=== PATIENT | female | born 1990 | race Caucasian/White ===

== ENCOUNTER 2020-05-18 14:37 | Emergency (ER) | payer SELFPAY ==
--- NOTE | 2020-05-18 14:39 | ECG_ITS ---
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 Measurements Intervals [place] Rate: 95 P: 33 VT: 148 QRS: 4 QRSD: 93 T: 56 QT: 331 QTc: 416 Interpretive Statements SINUS RHYTHM WITH FREQUENT VENTRICULAR PREMATURE COMPLEXES INTERPRETATION BASED ON A DEFAULT AGE OF 40 YEARS No previous ECG available for comparison Electronically Signed On 05-18-2020 17:05:10 CARDIAC NURSE SPECIALIST by Matt Dobson M.D. [id number]
[2020-05-18 15:04] VITALS: BP 117/68; PULSE 118; RESP 25; TEMP 36.9; O2SAT 98; BMI 24.5
--- NOTE | 2020-05-18 15:17 | W.ED.ARRPALP ---
HPI - Arrhythmia/Palpitations General: Chief Complaint: Arrhythmia/Palpitations Stated Complaint: erratic heart rate Time Seen by Provider: 05/18/20 15:04 Source: patient Mode of arrival: ambulatory Limitations: no limitations History of Present Illness: HPI narrative: 29-year-old female states she is currently 11 weeks . She states that she has had palpitations throughout the . She states she was admitted in [place] on the first and had PVCs noted on EKG then. She was admitted 1 night and discharge. She states she had follow-up next week but had to move here and does not have an OB here. She states that roughly 1 to 2 hours ago she started having increased heart rate at home and feeling very anxious. Her heart rate here when she first arrived was 118 but is now in the 90s. She denies any chest pain. She has no abdominal complaints no vaginal bleeding. Denies any worsening improving factors. Associated symptoms: Reports anxiety; Deny nausea or vomiting Review of Systems Const: Denies: fever(s), chills, body aches or change in appetite Eyes: Denies: blurry vision or eye discomfort ENMT: Denies: throat pain or dental pain Card: Reports: palpitations Resp: Denies: dyspnea GI: Denies: abdominal pain, nausea, vomiting or diarrhea : Denies: dysuria Musc: Denies: neck pain or back pain Skin/Breast: Denies: rash Neuro: Denies: headache(s) Psych: Reports: anxiety Cisco/Lymph: Denies: easy bruising All/Imm: Denies: urticaria PFS ED PFSH: Social History (Updated 05/18/20 @ 15:15 by Guanako Davidson RN) Smoking and tobacco status: current every day smoker cigarettes Packs smoked per day: 0.5 Alcohol intake: never Substance/Drug Use: never Female Reproductive History: Date of last menstrual period: 02/28/20 Physical Exam Const: COMMON NORMALS: no acute distress, patient oriented x3 and healthy appearing HENMT: COMMON NORMALS: normocephalic and atraumatic HEAD & SCALP: normocephalic and atraumatic Eye: COMMON NORMALS: Equal, round and reactive pupils present and EOMs intact bilaterally PUPIL: Yes Equal, round and reactive pupils present Neck/C-Spine: COMMON NORMALS: full ROM and supple Chest: COMMONS NORMALS: normal inspection of the chest and normal palpation of entire chest wall Resp: COMMON NORMALS: normal respiratory effort, No retractions, No use of accessory muscles and clear to auscultation bilaterally AUSCULTATION: clear to auscultation bilaterally Cardio: COMMON NORMALS: regular rate, regular rhythm and No murmurs present (Cardio) RATE: regular rate RHYTHM: regular rhythm GI: COMMON NORMALS: Normal to inspection, nondistended, normoactive bowel sounds present, Soft to palpation, non-tender and no masses PALPATION: Yes Soft to palpation Extremity: COMMON NORMALS: normal to inspection and full ROM Neuro: COMMON NORMALS: patient oriented x3, moves all extremities and no focal motor deficits Psych: COMMON NORMALS: mental status grossly normal, Normal thought process present and cooperative THOUGHT PROCESS: Normal thought process present Skin: COMMON NORMALS: no rashes or lesions noted and no wounds GENERAL SKIN EXAM: no rashes or lesions noted Course Vital Signs: Vital signs: Vital Signs Temperature 98.4 F 05/18/20 15:04 Pulse Rate 118 H 05/18/20 15:04 Respiratory Rate 25 H 05/18/20 15:04 Blood Pressure 117/68 05/18/20 15:04 Pulse Oximetry 98 05/18/20 15:04 MDM - Arrhythmia/Palpitations MDM Narrative: Medical decision making narrative: Patient presents here with palpitations. The first EKG here did show some PVCs was mildly tachycardic. Her heart rate improved greatly with 1 dose of labetalol and is now in the 80s. We will get her follow-up with OB. She is stable for discharge is return if worsening. She understands and agrees to plan. She has no chest pain or shortness of breath no signs of pulmonary embolism. Lab Data: Labs: Lab Results 05/18/20 05/18/20 Range/Units 16:27 16:27 WBC 9.8 (4.0-10.0) 10^3/ uL RBC 4.56 (4.1-5.3) 10^6/u L Hgb 14.4 (11.5-15.3) g/dL Hct 41.9 (37.0-47.0) % MCV 91.9 (81-99) fL MCH 31.6 (28.0-34.0) pg MCHC 34.4 (30.0-36.0) g/dL RDW 11.9 L (12.1-15.1) % Plt Count 205 (130-400) 10^3/c mm MPV 10.8 H (7.4-10.4) fL Neut % (Auto) 76.1 % Lymph % (Auto) 17.2 % [place] % (Auto) 5.4 % Eos % (Auto) 0.7 % Baso % (Auto) 0.2 % Neut # (Auto) 7.41 (1.8-7.7) 10^3/u L Lymph # (Auto) 1.7 (0.8-4.8) 10^3/u L [place] # (Auto) 0.5 (0.2-0.9) 10^3/u L Eos # (Auto) 0.1 (0.0-0.8) 10^3/u L Baso # (Auto) 0.0 (0.0-0.1) 10^3/u L Nucleated RBC % (a uto) 0 % Nucleated RBCs # 0.0 /100WBC Sodium 136 (136-145) mmol/L Potassium 3.6 (3.5-5.1) mmol/L Chloride 99 (98-107) mmol/L Carbon Dioxide 27 (22-29) mmol/L Anion Gap 13.6 (5-19) BUN 11 (6-20) mg/dL Creatinine 0.5 (0.5-0.9) mg/dL Glucose 88 (65-115) mg/dL Calcium 9.5 (8.5-10.5) mg/dL Total Bilirubin 0.2 (0.15-1.2) mg/dL AST 11 (0-32) U/L ALT 11 (0-33) U/L Alkaline Phosphata se 55 (35-105) IU/L Total Protein 7.1 (6.6-8.7) g/dL Albumin 4.2 (3.5-5.2) g/dL Globulin 2.9 (1.3-4.6) g/dL EKG Data^: EKG 1: Attestation: I personally reviewed and interpreted this EKG as follows: EKG interpretation date: 05/18/20 EKG interpretation time: 15:02 Interpretation: nsr hr [address] or t wave abnormalities qrs 93 qtc 383 Discharge Plan Discharge Patient Disposition: Home Clinical Impression: Palpitations, Condition: Stable Discharge Orders: Discharge ED (Routine); Ordered 05/18/20 Ordered By: Kevin Ivory Referrals: Raza Joy MD [Physician] - 1-3 days Discharge Diet: Advance as tolerated Discharge Activity: Resume usual activity Patient Instructions: Palpitations (ED) Coding Level of Care Code ED Project Superintendent for Chg Fwd Exam Comprehensive
[2020-05-18 16:48] LABS: Basophils % 0.2 %; Eosinophils # 0.1 10^3/uL (0.0-0.8); Eosinophils % 0.7 %; Hematocrit 41.9 % (37.0-47.0); Hemoglobin 14.4 g/dL (11.5-15.3); Lymphocytes # 1.7 10^3/uL (0.8-4.8); Lymphocytes % 17.2 %; Mean Corpuscular HGB Conc 34.4 g/dL (30.0-36.0); Mean Corpuscular Hemoglobin 31.6 pg (28.0-34.0); Mean Corpuscular Volume 91.9 fL (81-99); Mean Platelet Volume 10.8 fL (7.4-10.4); Monocytes # 0.5 10^3/uL (0.2-0.9); Monocytes % 5.4 %; Neutrophils # 7.41 10^3/uL (1.8-7.7); Neutrophils % 76.1 %; Nucleated Red Blood Cells % 0 %; Platelet Count 205 10^3/cmm (130-400); Red Blood Count 4.56 10^6/uL (4.1-5.3); Red Cell Distribution Width 11.9 % (12.1-15.1); White Blood Count 9.8 10^3/uL (4.0-10.0)
[2020-05-18 17:10] LABS: Alanine Aminotransferase 11 U/L (0-33); Albumin Level 4.2 g/dL (3.5-5.2); Alkaline Phosphatase 55 IU/L (35-105); Anion Gap 13.6 (5-19); Aspartate Amino Transferase 11 U/L (0-32); Blood Urea Nitrogen 11 mg/dL (6-20); Calcium 9.5 mg/dL (8.5-10.5); Carbon Dioxide 27 mmol/L (22-29); Chloride 99 mmol/L (98-107); Creatinine Clr Calc Pharmacy 151.2398; Globulin 2.9 g/dL (1.3-4.6); Glomerular Filtration Rate 143.9 mL/min (90-130); Glucose 88 mg/dL (65-115); Osmolality Calculated 281 mOsm/kg (285-295); Potassium 3.6 mmol/L (3.5-5.1); Sodium 136 mmol/L (136-145); Total Bilirubin 0.2 mg/dL (0.15-1.2); Total Protein 7.1 g/dL (6.6-8.7)
[2020-05-18 17:41] VITALS: BP 96/64; PULSE 77; RESP 18; O2SAT 99
--- NOTE | 2020-05-19 11:55 | DCPLANNER ---
theater manager had message to schedule a follow up appointment for patient with [facility]. theater manager called the [facility], spoke with Jeremias, gave clinic patients information. theater manager was told that patients information would be printed and reviewed. Clinic will call patient with appointment information.
--- NOTE | 2020-05-20 12:24 | DCPLANNER ---
Patient has a follow up appointment scheduled for Thursday, May 21, 2020 at 2:45 at [facility]. Clinic will call patient with appointment information.
--- NOTE | 2020-06-25 14:57 | DCPLANNER ---
Patient has a follow up appointment scheduled for 05.21.20 with [facility] - patient did attend appointment.
== END 2020-05-18 17:52 | disposition home or self-care (01) ==
PROVIDERS: Emergency Provider Emergency Medicine
DX: O26.891 Other specified pregnancy related conditions, first trimester (principal); R00.2 Palpitations; Z3A.11 11 weeks gestation of pregnancy; O99.331 Smoking (tobacco) complicating pregnancy, first trimester; F17.210 Nicotine dependence, cigarettes, uncomplicated
CPT/HCPCS: 12345; 80053; 85025; 93005; 96361; 96374; 99282; 99283; J3490; J7030

== ENCOUNTER → 2020-05-29 08:53 | Outpatient (BNVA) | payer MEDICAID, SELFPAY | PROVIDERS: Visit Provider Nurse Practitioner Women's Health | DX: Z34.80 Encounter for supervision of other normal pregnancy, unspecified trimester (principal) | CPT/HCPCS: 84315; 84439; 84443 ==

== ENCOUNTER → 2020-06-06 13:32 | Outpatient (BNVA) | payer MEDICAID, SELFPAY | PROVIDERS: Visit Provider Obstetrics & Gynecology | DX: O09.41 Supervision of pregnancy with grand multiparity, first trimester (principal); O99.411 Diseases of the circulatory system complicating pregnancy, first trimester; I49.3 Ventricular premature depolarization; O99.281 Endocrine, nutritional and metabolic diseases complicating pregnancy, first trimester; E03.9 Hypothyroidism, unspecified; Z64.1 Problems related to multiparity; Z3A.14 14 weeks gestation of pregnancy | CPT/HCPCS: 80307; 84315; 85027; 86592; 86762; 86803; 86850; 86900; 87086; 87340; 87806 ==

== ENCOUNTER → 2020-06-19 14:19 | Outpatient (BNVA) | payer MEDICAID, SELFPAY | PROVIDERS: Visit Provider Nurse Practitioner Women's Health | DX: Z34.80 Encounter for supervision of other normal pregnancy, unspecified trimester (principal); Z86.19 Personal history of other infectious and parasitic diseases | CPT/HCPCS: 84315; 87491; 87522; 87591 ==

== ENCOUNTER → 2020-06-23 16:18 | Outpatient (BNVA) | payer MEDICAID, SELFPAY | PROVIDERS: Referring Provider Obstetrics & Gynecology; Visit Provider Internal Medicine Cardiovascular Disease | DX: I49.3 Ventricular premature depolarization (principal); R06.02 Shortness of breath; N18.9 Chronic kidney disease, unspecified; R25.2 Cramp and spasm; R07.89 Other chest pain; Q20.8 Other congenital malformations of cardiac chambers and connections; R00.0 Tachycardia, unspecified | CPT/HCPCS: 80048; 83735; 84443 ==

== ENCOUNTER 2020-07-11 07:45 | Outpatient (CLI) | payer MEDICAID, SELFPAY ==
--- NOTE | 2020-07-11 08:00 | USCV_ITS ---
LasalleMicaela Age: 30 Gender: F : 1990 Exam Date: 07/11/2020 08:20 Ordering Phys: Anna Vasquez MD ([email or web address]) Technologist: Shari Carlos Exam Location: [facility] [place] Indication: CHEST PAIN BP: / HR: 80 Rhythm: Sinus Technical Quality: Adequate MEASUREMENTS (Male / Female) Normal Values 2D ECHO LV Diastolic Diameter PLAX 4.4 cm 4.2 - 5.9 / 3.9 - 5.3 cm LV Systolic Diameter PLAX 3.2 cm IVS Diastolic Thickness 0.8 cm 0.6 - 1.0 / 0.6 - 0.9 cm IVS Systolic Thickness 0.9 cm LVPW Diastolic Thickness 1.0 cm 0.6 - 1.0 / 0.6 - 0.9 cm LVPW Systolic Thickness 1.5 cm LVOT Diameter 2.1 cm LV Ejection Fraction 2D Teich 53.0 % LV Ejection Fraction MOD 2C 70.5 % LV Ejection Fraction 2C AL 70.6 % LA Diameter 2.9 cm LA Width 3.2 cm LA Height 4.1 cm RA Width 2.9 cm RA Height 3.9 cm Aorta at Sinotubular Diameter 2.1 cm M-MODE LV Diastolic Diameter MM 5.0 cm 4.2 - 5.9 / 3.9 - 5.3 cm LV Systolic Diameter MM 3.5 cm LV Ejection Fraction MM Teich 57.6 % IVS Diastolic Thickness MM 0.6 cm 0.6 - 1.0 / 0.6 - 0.9 cm IVS Systolic Thickness MM 0.9 cm LVPW Diastolic Thickness MM 0.7 cm 0.6 - 1.0 / 0.6 - 0.9 cm LVPW Systolic Thickness MM 1.1 cm Aortic Annulus Diameter 2.7 cm LA Ao Ratio MM 1.2 MV E Point Septal Separation 0.7 cm DOPPLER AV Peak Velocity 139.0 cm/s LVOT Peak Velocity 121.0 cm/s AV Area Cont Eq vti 2.4 cm squared AV Area Cont Eq pk 3.0 cm squared MV Area PHT 4.1 cm squared Mitral E to A Ratio 1.3 MV E' Velocity 53.5 cm/s Mitral E to MV E' Ratio 5.6 Mitral E to LV E' Lateral Ratio 5.6 Mitral E to LV E' Septal Ratio 5.7 TR Peak Velocity 228.0 cm/s TR Peak Gradient 20.8 mmHg TV Peak E Velocity 61.0 cm/s Right Atrial Pressure 3.0 mmHg Pulmonary Artery Systolic Pressu 23.8 mmHg PV Peak Velocity 101.0 cm/s FINDINGS Left Ventricle Normal left ventricular size and systolic function, EF 57 %. No regional wall motion abnormalities. No gross wall motion normalities were noted. Normal diastolic function. Right Ventricle The right ventricle is normal in size and function. Right Atrium The right atrium is normal in size. Left Atrium The left atrium is normal in size. Mitral Valve No gross abnormalities were noted Aortic Valve No gross abnormalities were noted Tricuspid Valve No gross abnormalities were noted Pulmonic Valve Mild pulmonary valve regurgitation. Pericardium Normal pericardium without effusion. Aorta Normal ascending aorta dimension. CONCLUSIONS Normal left ventricular size and systolic function, EF 57 %. No regional wall motion abnormalities. No gross wall motion normalities were noted. Normal diastolic function. Normal chamber sizes. No significant stenotic or valvular lesions. Strain imagings were performed but GLS was not obtained Dr Anna Vasquez MD [facility] (Electronically Signed) Final Date: 22 July 2020 00:13 S
== END 2020-07-11 07:46 | disposition home or self-care (01) ==
LOC: US 07:47
PROVIDERS: PCP Internal Medicine; Visit Provider Internal Medicine Cardiovascular Disease
DX: R07.89 Other chest pain
CPT/HCPCS: 93306

== ENCOUNTER → 2020-07-21 11:01 | Outpatient (BNVA) | payer MEDICAID, SELFPAY | PROVIDERS: PCP Internal Medicine; Visit Provider Obstetrics & Gynecology | DX: Z34.80 Encounter for supervision of other normal pregnancy, unspecified trimester (principal) | CPT/HCPCS: 81511; 84315 ==

== ENCOUNTER → 2020-08-18 08:20 | Outpatient (BNVA) | payer MEDICAID, SELFPAY | PROVIDERS: PCP Internal Medicine; Visit Provider Obstetrics & Gynecology | DX: Z34.80 Encounter for supervision of other normal pregnancy, unspecified trimester (principal); E03.9 Hypothyroidism, unspecified; B35.4 Tinea corporis; I49.3 Ventricular premature depolarization; R00.0 Tachycardia, unspecified; B19.20 Unspecified viral hepatitis C without hepatic coma; Q20.8 Other congenital malformations of cardiac chambers and connections; Z64.1 Problems related to multiparity | CPT/HCPCS: 84315; 84443 ==

== ENCOUNTER → 2020-09-18 09:41 | Outpatient (BNVA) | payer MEDICAID, SELFPAY | PROVIDERS: PCP Internal Medicine; Visit Provider Obstetrics & Gynecology | DX: O99.332 Smoking (tobacco) complicating pregnancy, second trimester (principal); B35.4 Tinea corporis; Q20.8 Other congenital malformations of cardiac chambers and connections; E03.9 Hypothyroidism, unspecified; Z64.1 Problems related to multiparity; I49.3 Ventricular premature depolarization; R00.0 Tachycardia, unspecified; B19.20 Unspecified viral hepatitis C without hepatic coma | CPT/HCPCS: 82950; 84315; 84443; 85025 ==

== ENCOUNTER → 2020-10-13 08:29 | Outpatient (BNVA) | payer MEDICAID, SELFPAY | PROVIDERS: PCP Internal Medicine; Visit Provider Obstetrics & Gynecology | DX: Z34.80 Encounter for supervision of other normal pregnancy, unspecified trimester (principal); B35.4 Tinea corporis; E03.9 Hypothyroidism, unspecified; Q20.8 Other congenital malformations of cardiac chambers and connections; I49.3 Ventricular premature depolarization; R00.0 Tachycardia, unspecified; B19.20 Unspecified viral hepatitis C without hepatic coma; Z64.1 Problems related to multiparity | CPT/HCPCS: 84315; 84443 ==

== ENCOUNTER 2020-10-20 14:15 | Emergency (ER) | payer MEDICAID, SELFPAY ==
[2020-10-20 14:34] VITALS: BP 123/70; PULSE 104; RESP 15; TEMP 36.7; O2SAT 98; BMI 29.3
--- NOTE | 2020-10-20 14:54 | W.ED.GENADLT ---
HPI - General Adult General: Chief complaint: Eye Problems Stated complaint: wavy lines/vision,numb R side/face,L side/head Time Seen by Provider: 10/20/20 14:41 History of Present Illness: HPI narrative: This patient is a 30-year-old female who presents to the emergency department for eye floaters. Patient states she has a long history of the same and this has been going on for some time. Patient states she was at the grocery store walking around and started having floaters. Patient states she went home to try to relax and noticed that her hand fingers got little numb and tingly and then her right face go numb and tingling but after little bit of rest it resolved. Patient denies any symptoms at this time. Patient is 33 weeks . Patient states her has been uneventful. Patient has no symptoms at this time Onset (ago): minute(s) Associated symptoms: Deny chest pain, dyspnea, headache(s), nausea, rash, palpitations or vomiting Review of Systems General: Reports: 10 or more systems reviewed and unremarkable except in HPI and below Const: Denies: fever(s), chills, body aches or fatigue Eyes: Reports: floaters; Denies: change in vision or blurry vision ENMT: Denies: throat pain, hoarseness or mouth pain Card: Denies: chest pain, palpitations, irregular heart rhythm, edema, swelling of feet/ankles or lightheadedness Resp: Denies: dyspnea, productive cough, non-productive cough, wheezing or pain on inspiration GI: Denies: abdominal pain, nausea or vomiting : Denies: flank pain, difficulty voiding, dysuria, urinary frequency, urinary urgency or urinary hesitancy Musc: Denies: neck pain, back pain, extremity pain, extremity swelling, joint pain, joint swelling, joint redness, joint warmth or limited range of motion Skin/Breast: Denies: rash, pruritus, erythema or skin tenderness Neuro: Denies: headache(s), numbness in extremities or weakness in extremities Psych: Denies: anxiety or depression PFS ED PFSH: Medical History History of hepatitis C (~2016) treated in 2018-- cleared Hypothyroid (~2012) No pertinent past medical history neghx: htn,dm,dvt/pe,herpes --denies partner with herpes PCP: None Surgical History No pertinent past surgical history Family History Family/Other Breast cancer Paternal Aunt x 3-- unknown dx age Thyroid disease Maternal Aunt Cancer Grandmother Diabetes Maternal Mother Lung disease Grandfather Lung disease Denies family history of Colon cancer Ovarian cancer CAD (coronary artery disease) Clotting disorder Dementia Heart disease Hypercholesteremia Chronic kidney disease (CKD) Suicide Anesthesia complication Bleeding disorder Hypertension Uterine cancer Stroke Social History Smoking and tobacco status: former smoker Alcohol intake: never Female Reproductive History: Date of last menstrual period: 02/28/20 Physical Exam Const: COMMON NORMALS: no acute distress, average body habitus, patient oriented x3, no limitations, healthy appearing, alert and well nourished HENMT: COMMON NORMALS: normocephalic, atraumatic, hearing grossly normal bilaterally, external ears normal, EAC's normal, TM's normal bilaterally, Normal external nose present, Normal nasal mucous membranes and turbinates present, moist oral mucous membranes, oropharynx normal, dentition normal and gingiva normal HEAD & SCALP: normocephalic and atraumatic NOSE: Normal external nose present and Normal nasal mucous membranes and turbinates present EXTERNAL EAR: Yes external ears normal EXTERNAL AUDITORY CANAL: EAC's normal TYMPANIC MEMBRANE: TM's normal bilaterally Neck/C-Spine: COMMON NORMALS: full ROM, no lymphadenopathy, supple, no meningeal signs, no JVD, Thyroid normal and No carotid bruits THYROID: Thyroid normal Chest: COMMONS NORMALS: normal inspection of the chest, normal palpation of entire chest wall, normal inspection of the breasts and normal palpation of the breasts Breast/axilla inspection: Yes normal inspection of the breasts BREAST/AXILLA PALPATION: Yes normal palpation of the breasts Resp: COMMON NORMALS: normal respiratory effort, No retractions, No use of accessory muscles, clear to auscultation bilaterally and percussion normal AUSCULTATION: clear to auscultation bilaterally PERCUSSION: percussion normal Cardio: COMMON NORMALS: no JVD, regular rate, regular rhythm, S1 normal heart sound present, S2 normal heart sound present, No gallops present (Cardio), No clicks present (Cardio), No murmurs present (Cardio), No rub (Cardio) and Peripheral pulses 2+ throughout RATE: regular rate RHYTHM: regular rhythm HEART SOUNDS: S1 normal heart sound present and S2 normal heart sound present PERIPHERAL PULSES: Peripheral pulses 2+ throughout GI: COMMON NORMALS: Normal to inspection, nondistended, normoactive bowel sounds present, Soft to palpation, non-tender, No hepatosplenomegaly present, no masses and no bruits PALPATION: Yes Soft to palpation and Yes No hepatosplenomegaly present Back/Pelvis: COMMON NORMALS: thoracic and lumbar spine normal to inspection, no thoracic nor lumbar tenderness, thoraco-lumbar ROM normal and straight leg raise negative bilaterally Extremity: COMMON NORMALS: normal to inspection, full ROM, capillary refill normal, no joint enlargement, no clubbing, cyanosis or edema, no calf tenderness and no pedal edema Neuro: COMMON NORMALS: patient oriented x3 SENSORIUM/ORIENTATION: Yes alert MENINGEAL SIGNS: Yes no meningeal signs Course Reevaluation(s): Reevaluation #1: Negative evaluation in the emergency department. Patient had no symptoms upon arrival and continues to have no symptoms with observation. Negative urine. Patient has long history of floaters in her vision. Patient instructed to follow-up with primary care or MANUFACTURING INSPECTOR as instructed patient be discharged home. Time: 15:40 Vital Signs: Vital signs: Vital Signs Temperature 98.0 F 10/20/20 14:34 Pulse Rate 104 H 10/20/20 14:34 Respiratory Rate 15 10/20/20 14:34 Blood Pressure 123/70 10/20/20 14:34 Pulse Oximetry 98 10/20/20 14:34 MDM - General Adult MDM Narrative: Medical decision making narrative: This patient is a 30-year-old female who presents to the emergency department for eye floaters. Patient states she has a long history of the same and this has been going on for some time. Patient states she was at the grocery store walking around and started having floaters. Patient states she went home to try to relax and noticed that her hand fingers got little numb and tingly and then her right face go numb and tingling but after little bit of rest it resolved. Patient denies any symptoms at this time. Patient is 33 weeks . Patient states her has been uneventful. Patient has no symptoms at this time Negative evaluation in the emergency department. Patient had no symptoms upon arrival and continues to have no symptoms with observation. Negative urine. Patient has long history of floaters in her vision. Patient instructed to follow-up with primary care or MANUFACTURING INSPECTOR as instructed patient be discharged home. Medical Records: Attestation: I reviewed the patient's medical records. Lab Data: Attestation: I reviewed the patient's lab results. Labs: Lab Results 10/20/20 Range/Units 14:58 Urine Color Straw (Yellow) Urine Appearance Clear (CLEAR) Urine pH 7 (5-7) Ur Specific Gravit y 1.000 L (1.005-1.030) Urine Protein Neg (Negative) Urine Glucose (UA) Norm (Normal) Urine Ketones Negative (Negative) Urine Blood Neg (Negative) Urine Nitrate Negative (Negative) Urine Bilirubin Neg (Negative) Urine Urobilinogen Norm (Negative) mg/dL Ur Leukocyte Margaret ase Negative (Negative) Discharge Plan Discharge Patient Disposition: Home Clinical Impression: Floaters in visual field, Numbness and tingling, Encounter for medical screening examination Condition: Stable Prescriptions: No Action prenat.vits,meera,fdp-wjgd-hhjda Tablet 1 tab PO DAILY RF: 0 levothyroxine 150 mcg capsule 150 mcg PO DAILY Qty: 90 RF: 3 Discharge Orders: Discharge ED (Routine); Ordered 10/20/20 Ordered By: Raza Adams Discharge Diet: Advance as tolerated Discharge Activity: Resume usual activity Patient Instructions: Opioid Safety Activity Restrictions/Additional Instructions: Follow-up with primary care physician and/or MANUFACTURING INSPECTOR in the next 2 to 3 days for further evaluation. Also follow-up with optometry or ophthalmology for an eye exam. Return to ER if symptoms fail to improve or worsen Coding Level of Care Code ED President [employer] for Farrah Fwd Exam Comprehensive
[2020-10-20 15:32] LABS: Add Urine Microscopic? NO; Charge for UA Resulting for Rev
[2020-10-20 15:35] LABS: Urine Appearance Clear (CLEAR); Urine Color Straw (Yellow); pH Urine 7 (5-7)
[2020-10-20 15:36] LABS: Bilirubin Urine Neg (Negative); Blood Urine Neg (Negative); Glucose Urine UA Norm (Normal); Ketones Urine Negative (Negative); Leukocyte Esterase Urine Negative (Negative); Nitrate Urine Negative (Negative); Protein Urine Neg (Negative); Urobilinogen Urine Norm (Negative)
== END 2020-10-20 15:50 | disposition home or self-care (01) ==
PROVIDERS: Absent Provider Obstetrics & Gynecology; Emergency Provider Emergency Medicine
DX: H43.399 Other vitreous opacities, unspecified eye (principal); R20.0 Anesthesia of skin; Z87.891 Personal history of nicotine dependence; Z86.19 Personal history of other infectious and parasitic diseases
CPT/HCPCS: 81003; 99282

== ENCOUNTER → 2020-10-28 11:39 | Outpatient (BNVA) | payer MEDICAID, SELFPAY | PROVIDERS: Visit Provider Nurse Practitioner Women's Health | DX: Z34.80 Encounter for supervision of other normal pregnancy, unspecified trimester (principal) | CPT/HCPCS: 81000 ==

== ENCOUNTER → 2020-11-10 07:52 | Outpatient (BNVA) | payer MEDICAID, SELFPAY | PROVIDERS: Visit Provider Obstetrics & Gynecology | DX: Z34.90 Encounter for supervision of normal pregnancy, unspecified, unspecified trimester (principal); Q20.8 Other congenital malformations of cardiac chambers and connections; E03.9 Hypothyroidism, unspecified; Z64.1 Problems related to multiparity; B19.20 Unspecified viral hepatitis C without hepatic coma; R00.0 Tachycardia, unspecified; I49.3 Ventricular premature depolarization | CPT/HCPCS: 84315; 84443; 87081 ==

== ENCOUNTER 2020-11-25 23:19 | Inpatient (IN) | payer MEDICAID, SELFPAY ==
[2020-11-25 22:12] VITALS: TEMP 36.8
[2020-11-25 22:13] VITALS: BP 123/78; PULSE 92
[2020-11-25 22:30] VITALS: BMI 30.4
[2020-11-25 22:51] LABS: Basophils % 0.2 %; Eosinophils % 0.2 %; Hematocrit 35.2 % (37.0-47.0); Hemoglobin 11.4 g/dL (11.5-15.3); Lymphocytes # 1.5 10^3/uL (0.8-4.8); Lymphocytes % 15.9 %; Mean Corpuscular HGB Conc 32.4 g/dL (30.0-36.0); Mean Corpuscular Hemoglobin 27.1 pg (28.0-34.0); Mean Corpuscular Volume 83.6 fL (81-99); Mean Platelet Volume 11.6 fL (7.4-10.4); Monocytes # 0.5 10^3/uL (0.2-0.9); Monocytes % 5.4 %; Neutrophils # 7.44 10^3/uL (1.8-7.7); Neutrophils % 77.8 %; Nucleated Red Blood Cells % 0 %; Platelet Count 197 10^3/cmm (130-400); Red Blood Count 4.21 10^6/uL (4.1-5.3); Red Cell Distribution Width 13.7 % (12.1-15.1); White Blood Count 9.6 10^3/uL (4.0-10.0)
[2020-11-25] MEDS: lactated ringers 1,000 ML 999 ML IV (22:53)
[2020-11-25 23:53] VITALS: BP 129/90; PULSE 99; O2SAT 100
[2020-11-25 23:56] VITALS: BP 148/75; PULSE 109
[2020-11-25 23:58] VITALS: PULSE 100; O2SAT 99
[2020-11-25 23:59] VITALS: BP 137/71; PULSE 94
[2020-11-26] VITALS (66 sets, daily range): BP systolic 93–137; BP diastolic 54–86; PULSE 60–157; RESP 16; TEMP 36.4–37; O2SAT 96–100
[2020-11-26] MEDS: dextrose 5%-lactated ringers 1,000 ML 125 ML IV (00:13)
--- NOTE | 2020-11-26 00:16 | ANES.PAUD2 ---
Documented by User: Barbara Maria CRNA 11/26/20 00:17 Pre-Anesthetic Update Pre-Anesthetic Assessment: Date of Surgery/Procedure: 11/26/20 Preop Diagnosis: IUp Any changes to Pre-Anesthetic Assessment?: No Last Intake: 1930- meal current clear liquids Labs Last 48hrs: Laboratory Results - last 48 hr 11/25/20 22:35 WBC 9.6 RBC 4.21 Hgb 11.4 L Hct 35.2 L MCV 83.6 MCH 27.1 L MCHC 32.4 RDW 13.7 Plt Count 197 MPV 11.6 H Neut % (Auto) 77.8 Lymph % (Auto) 15.9 [place] % (Auto) 5.4 Eos % (Auto) 0.2 Baso % (Auto) 0.2 Neut # (Auto) 7.44 Lymph # (Auto) 1.5 [place] # (Auto) 0.5 Eos # (Auto) 0.0 Baso # (Auto) 0.0 Nucleated RBC % (a uto) 0 Nucleated RBCs # 0.0 Vitals: Temperature 98.2 F 11/25/20 22:12 Temperature Source Tympanic 11/25/20 22:12 Pulse Rate 93 11/26/20 00:15 Pulse Rhythm 11/25/20 22:30 Pulse Strength 3+ Normal 11/25/20 22:30 Respiratory Effort Non-Labored 11/25/20 22:30 Respiratory Depth Normal 11/25/20 22:30 Respiratory Patter n 11/25/20 22:30 Blood Pressure 125/73 11/26/20 00:15 Pulse Oximetry 99 11/26/20 00:13 Oxygen Delivery Me thod 11/25/20 22:30 Exam: Pre-Anes Outpt Exam: alert, oriented x 3 and clear to auscultation bilaterally Cardiac Studies: Holter Monitor 06/19/20 Documented by User: Isael Israel 11/26/20 07:00 Pre-Anesthetic Update Pre-Anesthetic Assessment: Date of Surgery/Procedure: 11/26/20 Cardiac Studies: Holter Monitor 06/19/20
--- NOTE | 2020-11-26 00:18 | ANES.PROC ---
Documented by User: Barbara Maria CRNA 11/26/20 00:20 Anesthesia Procedures Procedure/Date: 11/26/20 Epidural: Time Out Performed: Yes Consents Signed: Procedure Consent Consent: requested by attending/covering physician, from patient, risks and benefits reviewed and patient agrees to proceed Lumbar Level: L3-L4 Epidural position: sitting Epidural procedure: sterile prep of area, 1% lidocaine to numb the area, neg for paresthesia, test dose given, 1.5% xylocaine 1:200k epi, no systemic response, sterile dressing applied, L.U.D. no apparent complications and 0.2% Ropiavacaine @ mls/hr (11 ml/hr) Documented by User: Isael Israel 11/26/20 07:00 Anesthesia Procedures Procedure/Date: 11/26/20
[2020-11-26] MEDS: oxytocin 30 UNIT/500 ML BAG IV (03:25)
--- NOTE | 2020-11-26 05:44 | PM.OPHPUD ---
Labor & Delivery H&P Update Date of Procedure: November 26, 2020 Date H&P Performed: 11/24/20 H&P update information: I have reviewed H&P completed within last 30 days, I have examined patient prior to procedure and Changes to prior documentation as noted here Changes to previous documentation: cervix /4, SROM confirmed clear fluid, active labor Admission Diagnosis: Preop diagnosis: IUP at 38 5/
--- NOTE | 2020-11-26 05:45 | PM.DELIVERY ---
Delivery Note: Date of delivery: November 26, 2020 Pre-delivery diagnoses: iup @ 38 5/7, SROM, active labor Post-delivery diagnoses: iup @ 38 6/7 weeks Procedure: Op report anesthesia: Epidural Delivering Physician: jodi Estimated blood loss (mL): 20 Findings: term female in cephalic presentation Pre-Delivery Course: The patient was admitted with complaints of SROM at term. She made slow progress and pitocin was begun at 1 mEq. She had complete cervical dilation a couple of hours later Delivery: The patient had complete cervical dilation and began to push. The head delivered in the TERRI position over an intact perineum under[ ] anesthesia. The nose and mouth were bulb suctioned. The shoulders and body delivered atraumatically. The baby was placed onto the mother's abdomen. The cord was clamped and cut. Cord blood was obtained. The placenta delivered spontaneously. It was inspected and found to be intact. Inspection of the perineum revealed no lacerations. Estimated blood loss 20 mL. Apgars on baby were 9 at 1 minute and 10 at 5 minutes. Weight of baby is pending. Mother and baby were stable post delivery. Coding Level of Care Code Acute Collar Tailor for Farrah Moser
[2020-11-26 06:37] LABS: Amphetamines Screen Urine Negative (Negative); Barbiturates Screen Urine Negative (Negative); Benzodiazepines Screen Urine Negative (Negative); Cocaine Screen Urine Negative (Negative); Opiate Screen Urine Negative (Negative); PCP Screen Urine Negative (Negative); THC Screen Urine Negative (Negative)
--- NOTE | 2020-11-26 07:00 | ANE.PACU2 ---
Inpatient post-anesthesia follow up: Airway intact: Yes Vital signs: Temperature 98.0 F Pulse Rate 71 Respiratory Rate Blood Pressure 113/63 Pulse Oximetry 98 Oxygen Delivery Me thod Room Air Oxygen Flow Rate Fraction of Inspir ed Oxygen Hydration adequate: Yes Nausea and vomiting: No Pain level: 2 Mental status: Baseline
[2020-11-26] MEDS: prenatal vitamin Capsule 1 CAP PO (08:03)
[2020-11-26] MEDS: lanolin oint 7 gm 1 APPLIC TOPICAL (08:03)
[2020-11-26] MEDS: benzocaine-menthol 78 gm Canister 1 SPRAY TOPICAL (08:03)
[2020-11-26] MEDS: docusate sodium 100 mg Capsule PO ×2 (08:03→18:30)
[2020-11-26] MEDS: ibuprofen 800 mg tablet PO ×3 (08:04→21:32)
[2020-11-26 14:59] LABS: Coronavirus Test Green County Not Detected
[2020-11-26 18:01] LABS: Hematocrit 36.1 % (37.0-47.0); Hemoglobin 11.6 g/dL (11.5-15.3); Mean Corpuscular HGB Conc 32.1 g/dL (30.0-36.0); Mean Corpuscular Hemoglobin 27.4 pg (28.0-34.0); Mean Corpuscular Volume 85.3 fL (81-99); Mean Platelet Volume 11.8 fL (7.4-10.4); Platelet Count 167 10^3/cmm (130-400); Red Blood Count 4.23 10^6/uL (4.1-5.3); Red Cell Distribution Width 13.7 % (12.1-15.1); White Blood Count 10.7 10^3/uL (4.0-10.0)
[2020-11-27] VITALS (10 sets, daily range): BP systolic 94–132; BP diastolic 58–82; PULSE 64–94; RESP 13–19; TEMP 36.1–36.9; O2SAT 97–100
--- NOTE | 2020-11-27 08:23 | ANES.PREANE2 ---
Pre-Anesthetic Assessment Pre-Anesthetic Assessment: Height/Weight: Height 1.63 m Weight 80.286 kg Temp Pulse Resp BP Pulse Ox 98.0 F 73 16 112/72 97 11/27/20 04:00 11/27/20 04:00 11/27/20 04:00 11/27/20 04:00 11/27/20 04:00 Preop Diagnosis: IUP at 38 5/7 Proposed Procedure: Operation Date: 11/27/20 09:35 Proposed Procedures p Lap Fulg,Removal of Tubes Sterilization(Bilateral) - Jimy Norton MD Was Beta Lety taken within 24 hours: N/A Was Clonidine taken within 24 hours: N/A Social: Social History: Tobacco and No alcohol Exam: Pre-Anes Outpt Exam: alert, oriented x 3, clear to auscultation bilaterally and regular rate & rhythm Airway: Submandibular: WNL Cervical ROM: WNL MP: 2 Dentition: Full CV/HEM: CV/HEM: Arrythmia Hepatic: Hepatic: Hepatitis (Hep C) Anesthetic Plan: ASA status: 2 Anesthesia: General Other: One day Risk of > 500 ml blood loss (7ml/kg in children): No Meds/Allergies Current Medications: Current Medications Generic Name Dose Route Start Last Admin Trade Name Freq PRN Reason Stop Dose Admin Benzocaine 1 spray 11/26/20 05:43 11/26/20 08:03 Benzocaine-Menth ol 78 Gm Canister TOPICAL 1 can PRN PRN Administration PAIN Docusate Sodium 100 mg 11/26/20 09:00 11/26/20 18:30 Docusate Sodium 100 Mg Capsule PO 100 mg BID KALEIGH Administration Ropivacaine 200 mg in 100 mls @ 13 mls/hr 11/25/20 22:33 11/26/20 05:30 Naropin Premix EPIDURAL Infused .Q7H42M PRN Infusion ANESTHESIA Lactated Ringer's 1,000 mls @ 999 m ls/hr 11/25/20 22:33 11/25/20 23:54 Lactated Ringers IV Infused .Q1H1M PRN Infusion See label comment s Dextrose/Lactated Ringer's 1,000 mls @ 125 m ls/hr 11/25/20 22:33 11/26/20 12:48 Dextrose 5%-Lact ated Ringers IV Infused .Q8H PRN Infusion Labor Oxytocin 30 unit in 500 ml s @ 1 mls/hr 11/26/20 03:06 11/26/20 12:48 Pitocin IV Infused .Q24H PRN Titration Labor Protocol 1 MILLIUNIT/MIN Ibuprofen 800 mg 11/26/20 09:00 11/26/20 21:32 Ibuprofen 800 Mg Tablet PO 800 mg TID KALEIGH Administration Lanolin 1 applic 11/26/20 05:43 11/26/20 08:03 Lanolin Oint 7 G m TOPICAL 1 tube PRN PRN Administration DRYNESS Multivit/ Folic Acid/Iron 1 cap 11/26/20 09:00 11/26/20 08:03 Vitamin Capsule PO 1 cap DAILY KALEIGH Administration PFSH Anesthesia PFSH: Medical History History of hepatitis C (~2016) treated in 2018-- cleared Hypothyroid (~2012) No pertinent past medical history neghx: htn,dm,dvt/pe,herpes --denies partner with herpes PCP: None Surgical History No pertinent past surgical history Family History Family/Other Breast cancer Paternal Aunt x 3-- unknown dx age Thyroid disease Maternal Aunt Cancer Grandmother Diabetes Maternal Mother Lung disease Grandfather Lung disease Denies family history of Colon cancer Ovarian cancer CAD (coronary artery disease) Clotting disorder Dementia Heart disease Hypercholesteremia Chronic kidney disease (CKD) Suicide Anesthesia complication Bleeding disorder Hypertension Uterine cancer Stroke Female Reproductive History: Date of last menstrual period: 02/28/20 : 7 Data Anesthesia CBC & Chem 7: 11/26/20 17:00 Other Labs: Laboratory Results - last 48 hr 11/25/20 11/26/20 11/26/20 22:35 03:59 06:14 WBC 9.6 RBC 4.21 Hgb 11.4 L Hct 35.2 L MCV 83.6 MCH 27.1 L MCHC 32.4 RDW 13.7 Plt Count 197 MPV 11.6 H Neut % (Auto) 77.8 Lymph % (Auto) 15.9 [place] % (Auto) 5.4 Eos % (Auto) 0.2 Baso % (Auto) 0.2 Neut # (Auto) 7.44 Lymph # (Auto) 1.5 [place] # (Auto) 0.5 Eos # (Auto) 0.0 Baso # (Auto) 0.0 Nucleated RBC % (auto) 0 Nucleated RBCs # 0.0 Urine Opiates Screen Negative Ur Barbiturates Screen Negative Ur Phencyclidine Scrn Negative Ur Amphetamines Screen Negative U Benzodiazepines Scrn Negative Urine Cocaine Screen Negative U Marijuana (THC) Screen Negative Nasal/Oral COVID-19 PCR Not detected 11/26/20 17:00 WBC 10.7 H RBC 4.23 Hgb 11.6 Hct 36.1 L MCV 85.3 MCH 27.4 L MCHC 32.1 RDW 13.7 Plt Count 167 MPV 11.8 H Neut % (Auto) Lymph % (Auto) [place] % (Auto) Eos % (Auto) Baso % (Auto) Neut # (Auto) Lymph # (Auto) [place] # (Auto) Eos # (Auto) Baso # (Auto) Nucleated RBC % (auto) Nucleated RBCs # Urine Opiates Screen Ur Barbiturates Screen Ur Phencyclidine Scrn Ur Amphetamines Screen U Benzodiazepines Scrn Urine Cocaine Screen U Marijuana (THC) Screen Nasal/Oral COVID-19 PCR Cardiac Studies: Holter Monitor 06/19/20
--- NOTE | 2020-11-27 08:31 | PM.DCS ---
Discharge Providers Date of Admission: 11/25/20 23:19 Date of Discharge: November 27, 2020 Attending Provider at Admission: Cynthia Quiroga MD Attending Provider at Discharge: Cynthia Quiroga MD Diagnoses at Discharge Discharge Diagnosis (1) state: Status: Acute (2) History of tubal ligation: Status: Acute Reason for Visit Reason for Visit: Possible ROM Hospital Course Hospital Course Ms. Terrell is a 30 year old status post spontaneous vaginal delivery desire permanent sterilization. Had a bilateral tubal ligation without complications. Operative day 1 she is afebrile and hemodynamically stable. Tolerating diet well. Passing flatus. Ambulating without difficulty. Breast-feeding without difficulty. She will be discharged on POD#2 Physical Exam Narrative: EXAM NARRATIVE: The patient is doing well this morning. She is NPO for tubal ligation today Const: COMMON NORMALS: no acute distress, average body habitus, patient oriented x3, no limitations and healthy appearing GENERAL APPEARANCE: cooperative, comfortable, well kempt and well developed ORIENTATION/CONSCIOUSNESS: Yes awake, Yes oriented to person, Yes oriented to place and Yes oriented to time Resp: COMMON NORMALS: normal respiratory effort EFFORT & INSPECTION: Yes able to speak in complete sentences GI: COMMON NORMALS: Soft to palpation and non-tender PALPATION: Yes Soft to palpation Extremity: COMMON NORMALS: no clubbing, cyanosis or edema and no calf tenderness Neuro: COMMON NORMALS: patient oriented x3 SENSORIUM/ORIENTATION: Yes oriented to person, Yes oriented to place and Yes oriented to time Psych: APPEARANCE: Yes well kempt Urinary Catheter Management^: Casey: Cath Placed During This Visit: yes, but has since been removed by the nurse Reason for Continuing Indwelling Catheter: Decision to DC Catheter Urinary Catheter Date of Insertion: 11/26/20 Urinary Catheter Time of Insertion: 01:01 Date Urinary Catheter Removed: 11/26/20 Time Urinary Catheter Discontinued: 05:21 Discharge Data Data Completed and Pending: Labs from last 24 hours 11/26/20 11/26/20 17:00 03:59 WBC 10.7 H RBC 4.23 Hgb 11.6 Hct 36.1 L MCV 85.3 MCH 27.4 L MCHC 32.1 RDW 13.7 Plt Count 167 MPV 11.8 H Nasal/Oral COVID-1 9 PCR Not detected Vitals: Last Vital Signs Temp 98.0 F 11/27/20 04:00 Pulse 73 11/27/20 04:00 Resp 16 11/27/20 04:00 BP 112/72 11/27/20 04:00 Pulse Ox 97 11/27/20 04:00 Discharge Plan Discharge Patient Disposition: Home Condition: Stable Prescriptions: New hydrocodone-acetaminophen 5-325 mg Tablet 1 tab PO Q4H PRN (Reason: Moderate To Severe Pain) Qty: 20 RF: 0 Continued prenat.vits,meera,sbz-gqhy-bvvsj Tablet 1 tab PO DAILY RF: 0 levothyroxine 150 mcg capsule 150 mcg PO DAILY Qty: 90 RF: 3 Discharge Orders: Discharge Order (Routine); Ordered 11/28/20 Ordered By: Jimy Norton Referrals: Jmiy Norton MD [Physician] - 2 weeks (Post op visit at 2 weeks) Cynthia Quiroga MD [Physician] - 12/08/20 10:15 am (Your 2 week post- appointment is scheduled for 12/08/20 @8:00. Your 6 week post- appointment is scheduled for 01/08/21 @10:15. ) Discharge Diet: Regular Discharge Activity: Increase activity as tolerated Patient Instructions: Vitamins (By mouth), Female Sterilization, Pre-eclampsia and Eclampsia (DC), Bleeding (DC), OB Discharge Report, OB Food/Drug Interaction Guide, Opioid Safety, OB Home Care, OB Proud Parent Packet, OB Vaginal Deliveries - [facility] Activity Restrictions/Additional Instructions: 1. Please call [facility] [place] Women [facility] Care clinic on next working day to make your post-operative appointment in 2 weeks. 2. Please stay home until you come back to the clinic on first post-operative check up. 3. Please follow instructions on your medications CAREFULLY. 4. If you have abdominal incision, do not cover it unless dressing is necessary because of drainage. OK to shower, but avoid bath. Leave steri-strips until they fall off. If they are still on one week after surgery, you may remove them. 5. If you had vaginal surgery or vaginal repair, Dr. Norton may instruct you to take SITZ bath. 6. Yellow, blood tinged odorous vaginal discharge is usually normal after hysterectomy or vaginal surgeries. 7. No sexual intercourse, tampons, or douches until you are completely released from the post-operative care. 8. Avoid constipation by eating right and maybe using some Metamucil or Milk of Magnesia. 9. All prescription refills are given during the working hours. Please do no wait till it runs out. Call the clinic at [phone] before your medication runs out. The clinic will get in touch with your doctor to prescribe medications if necessary. 10. Please remain within 40 mile radius from our hospital because emergencies do happen now and then during the post-operative period. 11. If you have stairs at home, take one step at a time slowly and minimize the number of trips. It helps to stay in one floor for the next few days. No lifting except what you can lift by one hand until you are released from the post-operative care. 12. Driving is discouraged until you are well healed. It may be 3-4 weeks before you feel strong enough to drive. You should be able to turn and look through the rear window without pain and you should be able to push the brake pedal very hard without pain before you drive. No fast rules, but SAFETY should be your primary concern. DO NOT drive if you are on sedating medications such as narcotics. 13. Call the clinic (during working hours) to make urgent appointment or go to the Emergency room, if any of the following occurs: i. Vaginal bleeding becomes heavy, more than a period. ii. Incision becomes red and sore, or drains pus. iii. Your temperature is over 100.4 or you have chill. iv. IV site becomes red and swollen (a little ``knot?? is usually OK) v. Persistent nausea and vomiting vi. Persistent constipation or diarrhea vii. Rash or allergic reaction to medications. Discharge Attestations Time Spent in Discharge Care*: less than 30 min Quality Metrics Clinical Quality Measures During this hospital stay, did patient experience: None Coding Level of Care Code Acute Chg FW DC note Exam Expanded Problem Focused Diagnoses state Z39.2 History of tubal ligation Z98.51
--- NOTE | 2020-11-27 08:44 | PM.PN ---
Subjective Subjective: Interval history: Ms. Terrell is a 29 year old status post spontaneous vaginal delivery desires permanent sterilization. Vitals/I&O/Wt Last Vital Signs Temp 98.0 F 11/27/20 04:00 Pulse 73 11/27/20 04:00 Resp 16 11/27/20 04:00 BP 112/72 11/27/20 04:00 Pulse Ox 97 11/27/20 04:00 Weight last 48 hrs Weight 80.286 kg Physical Exam Narrative: EXAM NARRATIVE: GA; alert and oriented x 3 HEENT: normal Breasts: engorged Nipples - skin intact Lungs; clear to auscultation Heart: regular rhythm, no murmurs. Abd: Appropriately tender. BS+. Uterine fundus below umbilicus. No Fundal Tenderness. Perineum: normal lochia. Extremities: no edema, no cyanosis, no tenderness. Urinary Catheter Management^: Casey: Cath Placed During This Visit: yes, but has since been removed by the nurse Reason for Continuing Indwelling Catheter: Decision to DC Catheter Urinary Catheter Date of Insertion: 11/26/20 Urinary Catheter Time of Insertion: 01: Date Urinary Catheter Removed: 11/26/20 Time Urinary Catheter Discontinued: : Data : 11/26/20 17:00 A&P Assessment and plan (1) Request for sterilization: Ms. Terrell is a 30 year old status post spontaneous vaginal delivery desire permanent sterilization requesting tubal ligation. The patient was counseled regarding all methods of contraception, risk and complications. She elected to continue to proceed with the tubal ligation as planned. partial salpingectomy is associated with lower failure rates than interval tubal occlusions done via laparoscopy. She was counseled regarding the procedure, alternative, risks and complications. Complications of tubal sterilization include problems like but not limited to anesthesia, hemorrhage, organ damage, and mortality. Although pregnancies after a sterilization procedure are rare, there is substantial risk that any post-sterilization could be ectopic. The overall failure rate is on the order of 0.5% in the first year but a study showed that sterilization failures vary by both age at sterilization and the method used. The study also found that the risks of accumulate over time, and that for women aged 18 to 27 years, failure rates can be as high as 5% with bipolar coagulation and the spring clip. The patient was informed of the risks and benefits of the procedure. Risks included but were not limited to bleeding, infection, and injury to internal organs. The patient was counseled on the risk of sterilization failure. The patient was informed that in the event a occurs the risk of ectopic is increased. The patient was counseled that bilateral tubal ligation is intended to be permanent and nonreversible. She was also counseled that there are nonpermanent forms of control available to her. The patient expressed understanding of the risks involved, all questions were answered, and the patient consented to the procedure and had signed and had signed the consent. This documentation was created by [employer] aerospace control and warning systems software (known for inherent aerospace control and warning systems error). Every effort was made to assure accuracy of aerospace control and warning systems. Any obvious errors or omissions should be clarified with the author of the document. Status: Acute (2) Status post vaginal delivery: Status: Acute Attestations Medical Necessity Statement*: In my professional opinion per admitting diagnosis. Coding Level of Care Code Acute Animal Physiologist for Chg Fwd Diagnoses Request for sterilization Z30.2 Status post vaginal delivery
--- NOTE | 2020-11-27 10:10 | PM.OP ---
Operative Report Date of procedure: November 27, 2020 Pre-op Diagnosis: IUP at 38 5/7, Pre-op Diagnosis: status post spontaneous vaginal delivery, desires permanent sterilization Post-op diagnosis: same Post-op Findings: Enlarged uterus at the level of the umbilicus Procedure Done: bilateral tubal ligation via fulguration with the [employer] Fine Fusion Vessel Sealing device Specimens removed/disposition: Left and right fallopian tube segments Pathology: Left and right fallopian tube segment Surgeon: Jimy Norton MD Anesthesia: General Estimated blood loss (mL): 1 IV fluids (mL): 500 Urine output (mL): 100 Complications: none Condition: stable Disposition: PACU Brief History: Ms. Terrell is a 29 year old status post spontaneous vaginal delivery desires permanent sterilization. Procedure: After assuring informed consent. The patient was informed of the risks and benefits of the procedure. Risks included but were not limited to bleeding, infection, and injury to internal organs. The patient was counseled on the risk of sterilization failure. The patient was informed that in the event a occurs the risk of ectopic is increased. The patient was counseled that bilateral tubal ligation is intended to be permanent and nonreversible. She was also counseled that there are nonpermanent forms of control available to her. The patient expressed understanding of the risks involved, all questions were answered, and the patient consented to the procedure. The patient was taken to the operating room and general anesthesia administered. Time-out procedure was performed. A small, transverse, infraumbilical skin incision was made with a scalpel, and the incision was carried down through the underlying fascia until the peritoneum was identified and entered. The left fallopian tube was identified, brought into the incision and grasped with a [place] clamp. The tube was then followed out to the fimbria. An avascular midsection of the fallopian tube was grasped with a [place] clamp and brought into a knuckle. The tube was clamped, mauro and transected with the [employer] Fine Fusion Vessel Sealing device . The specimen was sent to pathology. Excellent hemostasis was noted, and the tube was returned to the abdomen. The same procedure was performed on the opposite fallopian tube. The fascia was then closed with O-Vicryl in a single layer. The skin was closed with 3-O Monocryl in a subcuticular fashion. The patient tolerated the procedure well. Needle and sponge counts were correct times 3.
--- NOTE | 2020-11-27 10:25 | SUR.PHASEI ---
PT AWAKE ALERT TALKATIVE , PT VERBALLY DENIES PAIN AND NAUSEA, ASKING ABOUT , WARM BLANKET TO PT. PT DENIES COLD, VSS.
[2020-11-27] MEDS: ketorolac 30 mg/mL INJ IVP (11:53)
--- NOTE | 2020-11-27 14:37 | ANE.PACU2 ---
Inpatient post-anesthesia follow up: Airway intact: Yes Vital signs: Temperature 98.5 F Pulse Rate 69 Respiratory Rate 18 Blood Pressure 108/75 Pulse Oximetry 100 Oxygen Delivery Me thod Room Air Oxygen Flow Rate 6 Fraction of Inspir ed Oxygen Hydration adequate: Yes Nausea and vomiting: No Pain level: 2 Mental status: Baseline
[2020-11-27] MEDS: docusate sodium 100 mg Capsule PO (18:45)
[2020-11-27] MEDS: ibuprofen 800 mg tablet PO (20:24)
[2020-11-27] MEDS: HYDROcodone-acetaminophen 5-325 mg Tablet PO (22:23)
[2020-11-28] MEDS: HYDROcodone-acetaminophen 5-325 mg Tablet PO (04:34)
[2020-11-28] MEDS: ibuprofen 800 mg tablet PO (04:36)
[2020-11-28 05:02] LABS: Hematocrit 32.3 % (37.0-47.0); Hemoglobin 10.1 g/dL (11.5-15.3); Mean Corpuscular HGB Conc 31.3 g/dL (30.0-36.0); Mean Corpuscular Hemoglobin 26.9 pg (28.0-34.0); Mean Corpuscular Volume 86.1 fL (81-99); Mean Platelet Volume 11.3 fL (7.4-10.4); Platelet Count 154 10^3/cmm (130-400); Red Blood Count 3.75 10^6/uL (4.1-5.3); Red Cell Distribution Width 13.8 % (12.1-15.1); White Blood Count 8.9 10^3/uL (4.0-10.0)
[2020-11-28 05:43] VITALS: BP 115/76; PULSE 66; RESP 17; TEMP 36.8
--- NOTE | 2020-11-28 08:17 | PM.OBGYDC ---
Discharge Providers SENIOR SOFTWARE ANALYST Date of Admission: 11/25/20 23:19 Date of Discharge: 11/28/20 Attending Provider at Admission: Cynthia Quiroga MD Attending Provider at Discharge: Jimy Norton MD Diagnoses at Discharge Discharge Diagnosis (1) Request for sterilization: Status: Acute (2) Status post vaginal delivery: Status: Acute Reason for Visit Reason for Visit: Possible ROM Hospital Course Hospital Course Ms. Terrell is a 30 year old status post spontaneous vaginal delivery desire permanent sterilization. Had a bilateral tubal ligation without complications. Operative day 1 she is afebrile and hemodynamically stable. Tolerating diet well. Passing flatus. Ambulating without difficulty. Breast-feeding without difficulty. Information Peripartum Data: Infant Delivery Method: Vaginal Physical Exam Narrative: EXAM NARRATIVE: GA; alert and oriented x 3 HEENT: normal Breasts: engorged Nipples - skin intact Lungs; clear to auscultation Heart: regular rhythm, no murmurs. Abd: Appropriately tender. BS+. Uterine fundus below umbilicus. No Fundal Tenderness. minimal tenderness, incision clean and dry, no redness, pain or edema. Perineum: normal lochia. Extremities: no edema, no cyanosis, no tenderness. Urinary Catheter Management^: Casey: Cath Placed During This Visit: yes, but has since been removed by the nurse Reason for Continuing Indwelling Catheter: Decision to DC Catheter Urinary Catheter Date of Insertion: 11/27/20 Urinary Catheter Time of Insertion: 09:50 Date Urinary Catheter Removed: 11/26/20 Time Urinary Catheter Discontinued: 05:21 Discharge Data Data Completed and Pending: Pending at discharge Category Date Time Status Pathology: Surgic al [PTH] Routine Pth 11/27/20 10:20 Received Labs from last 24 hours 11/28/20 04:40 WBC 8.9 RBC 3.75 L Hgb 10.1 L Hct 32.3 L MCV 86.1 MCH 26.9 L MCHC 31.3 RDW 13.8 Plt Count 154 MPV 11.3 H Vitals: Last Vital Signs Temp 98.2 F 11/28/20 05:43 Pulse 66 11/28/20 05:43 Resp 17 11/28/20 05:43 BP 115/76 11/28/20 05:43 Pulse Ox 98 11/27/20 22:00 Discharge Plan Discharge Patient Disposition: Home Condition: Stable Prescriptions: New hydrocodone-acetaminophen 5-325 mg Tablet 1 tab PO Q4H PRN (Reason: Moderate To Severe Pain) Qty: 20 RF: 0 Continued prenat.vits,meera,mia-vqle-djcvf Tablet 1 tab PO DAILY RF: 0 levothyroxine 150 mcg capsule 150 mcg PO DAILY Qty: 90 RF: 3 Discharge Orders: Discharge Order (Routine); Ordered 11/28/20 Ordered By: Jimy Norton Referrals: Cynthia Quiroga MD [Physician] - 12/08/20 10:15 am (Your 2 week post- appointment is scheduled for 12/08/20 @8:00. Your 6 week post- appointment is scheduled for 01/08/21 @10:15. ) Jimy Norton MD [Physician] - 2 weeks (Post op visit at 2 weeks) Discharge Diet: Regular Discharge Activity: Increase activity as tolerated Patient Instructions: Vitamins (By mouth), Pre-eclampsia and Eclampsia (DC), Bleeding (DC), OB Discharge Report, OB Food/Drug Interaction Guide, Opioid Safety, OB Home Care, OB Proud Parent Packet, OB Vaginal Deliveries - [facility], Female Sterilization Activity Restrictions/Additional Instructions: 1. Please call [facility] on next working day to make your post-operative appointment in 2 weeks. 2. Please stay home until you come back to the clinic on first post-operative check up. 3. Please follow instructions on your medications CAREFULLY. 4. If you have abdominal incision, do not cover it unless dressing is necessary because of drainage. OK to shower, but avoid bath. Leave steri-strips until they fall off. If they are still on one week after surgery, you may remove them. 5. If you had vaginal surgery or vaginal repair, Dr. Norton may instruct you to take SITZ bath. 6. Yellow, blood tinged odorous vaginal discharge is usually normal after hysterectomy or vaginal surgeries. 7. No sexual intercourse, tampons, or douches until you are completely released from the post-operative care. 8. Avoid constipation by eating right and maybe using some Metamucil or Milk of Magnesia. 9. All prescription refills are given during the working hours. Please do no wait till it runs out. Call the clinic at [phone] before your medication runs out. The clinic will get in touch with your doctor to prescribe medications if necessary. 10. Please remain within 40 mile radius from our hospital because emergencies do happen now and then during the post-operative period. 11. If you have stairs at home, take one step at a time slowly and minimize the number of trips. It helps to stay in one floor for the next few days. No lifting except what you can lift by one hand until you are released from the post-operative care. 12. Driving is discouraged until you are well healed. It may be 3-4 weeks before you feel strong enough to drive. You should be able to turn and look through the rear window without pain and you should be able to push the brake pedal very hard without pain before you drive. No fast rules, but SAFETY should be your primary concern. DO NOT drive if you are on sedating medications such as narcotics. 13. Call the clinic (during working hours) to make urgent appointment or go to the Emergency room, if any of the following occurs: i. Vaginal bleeding becomes heavy, more than a period. ii. Incision becomes red and sore, or drains pus. iii. Your temperature is over 100.4 or you have chill. iv. IV site becomes red and swollen (a little ``knot?? is usually OK) v. Persistent nausea and vomiting vi. Persistent constipation or diarrhea vii. Rash or allergic reaction to medications. Discharge Attestations SENIOR SOFTWARE ANALYST Time Spent in Discharge Care*: greater than 30 min Coding Level of Care Code Acute Home Service Consultant for Farrah Moser Diagnoses Request for sterilization Z30.2 Status post vaginal delivery
[2020-11-28 09:40] VITALS: BP 120/63; PULSE 83; RESP 16; TEMP 36.8; O2SAT 98
== END 2020-11-28 10:14 | disposition home or self-care (01) | DRG 798 ==
LOC: OPOB 23:20
PROVIDERS: Obstetrics & Gynecology; Admitting Provider Obstetrics & Gynecology; Visit Provider Obstetrics & Gynecology
PROC: 0UB70ZZ Excision of Bilateral Fallopian Tubes, Open Approach (ICD-10-PCS; CPT 58605; principal; 2020-11-27 09:25)
DX: O99.284 Endocrine, nutritional and metabolic diseases complicating childbirth (principal); Z37.0 Single live birth; E03.9 Hypothyroidism, unspecified; O99.42 Diseases of the circulatory system complicating childbirth; I49.3 Ventricular premature depolarization; O99.334 Smoking (tobacco) complicating childbirth; F17.210 Nicotine dependence, cigarettes, uncomplicated; Z30.2 Encounter for sterilization; Z3A.38 38 weeks gestation of pregnancy; Z86.19 Personal history of other infectious and parasitic diseases
CPT/HCPCS: 36415; 51702; 59025; 59409; 80306; 83986; 85025; 85027; 87635; 88302; 99211; J1100; J1170; J1885; J2405; J2704; J2710; J2795; J3010; J3490

== ENCOUNTER → 2020-12-01 00:01 | Outpatient (BNVA) | payer MEDICAID, SELFPAY | PROVIDERS: Visit Provider Obstetrics & Gynecology | DX: O16.5 Unspecified maternal hypertension, complicating the puerperium (principal) | CPT/HCPCS: 80053; 82570; 84156; 85025 ==

== ENCOUNTER → 2021-01-08 10:34 | Outpatient (BNVA) | payer MEDICAID, SELFPAY | PROVIDERS: Visit Provider Obstetrics & Gynecology | DX: Z39.2 Encounter for routine postpartum follow-up (principal); O16.5 Unspecified maternal hypertension, complicating the puerperium; E03.9 Hypothyroidism, unspecified | CPT/HCPCS: 84443 ==

== ENCOUNTER → 2021-05-01 10:50 | Outpatient (BNVA) | payer MEDICAID, SELFPAY | PROVIDERS: PCP Nurse Practitioner Family; Visit Provider Obstetrics & Gynecology | DX: Z01.419 Encounter for gynecological examination (general) (routine) without abnormal findings (principal); Z11.3 Encounter for screening for infections with a predominantly sexual mode of transmission | CPT/HCPCS: 87491; 87522; 87591; 87661; 88305 ==

== ENCOUNTER 2021-07-10 14:25 | Emergency (ER) | payer MEDICAID, SELFPAY ==
--- NOTE | 2021-07-10 14:27 | ECG_ITS ---
[facility] Test Date: 2021-07-10 Pat Name: Micaela Terrell Department: Room: Gender: Female Custodial Services Manager: : 1990 Requested By: Marbella Mitchell Order Number: [id number] Corey MD: Anna Vasquez M.D. Measurements Intervals [place] Rate: 111 P: 73 CT: 170 QRS: 25 QRSD: 95 T: 69 QT: 350 QTc: 477 Interpretive Statements SINUS TACHYCARDIA WITH FREQUENT VENTRICULAR PREMATURE COMPLEXES INCOMPLETE RIGHT BUNDLE BRANCH BLOCK [90+ ms QRS DURATION, TERMINAL R IN V1/V2, 40+ ms S IN I/aVL/V4/V5/V6] ABNORMAL RHYTHM ECG Compared to ECG 05/18/2020 15:02:05 Incomplete right bundle-branch block now present Sinus rhythm no longer present Electronically Signed On 07-10-2021 17:50:46 CDT by Anna Vasquez M.D. [email or web address]
[2021-07-10 14:39] VITALS: BP 146/92; PULSE 99; RESP 16; TEMP 37.1; O2SAT 98; BMI 28.8
--- NOTE | 2021-07-10 15:00 | PC.PHAR ---
pt states she takes care of her own medications-pt states she had stop taking her levothyroxine for a while and then states she restarted taking it-pt states she stop taking her lexapro a month or so ago-pt states the dr told her she could take her old buspar 5mg bid prn-pt states she took one tab of prednisone of her friends a week ago-pt states she had an old ultram rx pt states she took 2 tabs last night-notes are made in the pharmacy comments
--- NOTE | 2021-07-10 15:05 | W.ED.GENADLT ---
HPI - General Adult General: Chief complaint: Chest Pain Stated complaint: PVC Time Seen by Provider: 07/10/21 14:33 History of Present Illness: Patient is a 31-year-old female with a history of prior palpitation during previous , former meth use presenting to the emergency room for worsening intermittent palpitation for the last 3 days. Patient tells me that she has had significant palpitation throughout the day. Earlier this morning, patient reported waking up feeling lightheaded due to palpitation. Patient denies any passing out. Denies any family history of sudden cardiac . Patient is currently a smoker but has cut down on her smoking to less than half a pack a day. Patient denies any other sympathomimetic use including cocaine or methamphetamine recently. Patient has a history of hypothyroidism for which she takes Synthroid. Her last week, patient has normalized the dosing for Synthroid. Patient denies any other complaints including active chest pain but reports chest uncomfortableness during these episodes of palpitations. Patient denies any shortness of breath, any leg swelling, recent surgery or immobilization. No family history of DVT or hypercoagulability. No family history of aneurysm. Patient denies any exertional chest chest pain or shortness of breath. Patient denies any pleuritic chest pain or chest pain this radiates to her back. Patient has no other focal complaints including abdominal complaints, decreased p.o. intake, nausea/vomiting, diarrhea, melena hematochezia. Patient denies taking more than usual dose of her Synthroid medicine. Of note, patient was seen by Dr. Vasquez previously for palpitation during . That point time, patient underwent Holter evaluation with negative work-up. Patient has since has not been able to follow with Dr. Vasquez. Onset: chronically, acutely worsening over 3 days ago Duration:ongoing x 3 days Location:home Severity:moderate Associated symptoms: Reports palpitations; Deny chest pain, dyspnea, nausea, rash or vomiting Review of Systems Const: Denies: fever(s) or chills Eyes: Denies: change in vision ENMT: Denies: mouth pain Card: Reports: palpitations; Denies: chest pain Resp: Denies: dyspnea or non-productive cough GI: Denies: abdominal pain, nausea, vomiting or diarrhea : Denies: dysuria Musc: Denies: extremity pain Skin/Breast: Denies: rash or new lesions Neuro: Denies: weakness in extremities Psych: Reports: other (Normal mood) [place]/Lymph: Denies: easy bruising PFSH ED PFSH: Medical History History of hepatitis C (~2016) treated in 2018-- cleared Hypothyroid (~2012) No pertinent past medical history neghx: htn,dm,dvt/pe,herpes --denies partner with herpes PCP: None Surgical History No pertinent past surgical history Family History Family/Other Breast cancer Paternal Aunt x 3-- unknown dx age Thyroid disease Maternal Aunt Cancer Grandmother Diabetes Maternal Mother Lung disease Grandfather Lung disease Denies family history of Colon cancer Ovarian cancer CAD (coronary artery disease) Clotting disorder Dementia Heart disease Hypercholesteremia Chronic kidney disease (CKD) Suicide Anesthesia complication Bleeding disorder Hypertension Uterine cancer Stroke Social History (Updated 07/11/21 @ 11:02 by Marbella Mitchell MD) Smoking and tobacco status: current every day smoker Alcohol intake: former Substance/Drug Use: never Female Reproductive History: Date of last menstrual period: 02/28/20 Physical Exam Const: COMMON NORMALS: alert HENMT: COMMON NORMALS: atraumatic HEAD & SCALP: atraumatic MOUTH: moist mucous membranes not abnormal Eye: COMMON NORMALS: EOMs intact bilaterally and conjunctivae normal CONJUNCTIVA: Yes conjunctivae normal Neck/C-Spine: COMMON NORMALS: full ROM and supple Resp: COMMON NORMALS: normal respiratory effort and clear to auscultation bilaterally AUSCULTATION: clear to auscultation bilaterally Cardio: COMMON NORMALS: regular rate RATE: regular rate OTHER: 2+ radial pulses GI: COMMON NORMALS: Soft to palpation and non-tender PALPATION: Yes Soft to palpation Extremity: COMMON NORMALS: full ROM Neuro: SENSORIUM/ORIENTATION: Yes alert MOTOR EXAM: No Abnormal motor strength present and Other motor observations present (no focal motor deficits) Psych: COMMON NORMALS: speech normal SPEECH: Yes normal speech MOOD & AFFECT: Yes euthymic mood Course Vital Signs: Vital signs: Vital Signs Temperature 98.7 F 07/10/21 17:01 Pulse Rate 75 07/10/21 17:01 Respiratory Rate 20 H 07/10/21 17:01 Blood Pressure 115/74 07/10/21 17:01 Pulse Oximetry 99 07/10/21 17:01 MDM - General Adult Medical Decision Making Patient is a 31-year-old female with history of hypothyroidism on Synthroid, remote meth use who presents to the emergency room for concerns of worsening palpitation for the last 3 days. While patient was observed in the emergency, patient was noted to have occasional PVC. On EKG, patient is found to have regular PVCs after every 3 beat. Patient has normal QTC. K, magnesium and other electrolytes are within normal limit. Patient received 1 L of fluid, 25 mg of metoprolol and 5 mg of IV metoprolol with significant improvement in symptoms of palpitations and decreased frequency of PVCs on quality assurance monitor final. Patient has no signs of WPW, long QT, Brugada, or hokum on EKG. No high risk features including sudden cardiac in her family. TSH/T4 within normal limit. D-dimer within normal limit. This does not suspect the patient has an acute PE dissection or ACS at this time that would explain findings of palpitation or frequent PVCs. I discussed case with Dr. Dobson who recommends starting patient on outpatient metoprolol with close outpatient evaluation and outpatient cardiac monitoring. I have given patient follow up with our home health care case manager to be seen by our outpatient by Dr. Vasquez for frequent PVCs. Patient aware of a call from our home health care case manager to schedule for appointment(s) and verbalizes understanding of the importance of following up. In addition, patient will be set up for outpatient cardiac monitoring prior to seeing Dr. Vasquez. Rx metoprolol 25mg BID x 10 days. Patient will go home with outpatient cardiac monitoring. Disposition: Discharge. Patient counseled regarding diagnostic impression, treatment plan. Patient given ED strict return precautions to return for continuation, worsening, or development of new symptoms. Instructed to f/u w/ PCP regarding symptoms today. Patient verbalized understanding. Lab Data : 07/10/21 15:12 07/10/21 15:12 Laboratory Results WBC 5.2 10^3/uL (4.0-10.0) 07/10/21 15:12 RBC 4.75 10^6/uL (4.1-5.3) 07/10/21 15:12 Hgb 14.8 g/dL (11.5-15.3) 07/10/21 15:12 Hct 42.1 % (37.0-47.0) 07/10/21 15:12 MCV 88.6 fl (81-99) 07/10/21 15:12 MCH 31.2 pg (28.0-34.0) 07/10/21 15:12 MCHC 35.2 g/dL (30.0-36.0) 07/10/21 15:12 RDW 12.0 % (12.1-15.1) L 07/10/21 15:12 Plt Count 236 10^3/cmm (130-400) 07/10/21 15:12 MPV 11.0 fL (7.4-10.4) H 07/10/21 15:12 Neut % (Auto) 65.0 % 07/10/21 15:12 Lymph % (Auto) 24.2 % 07/10/21 15:12 [place] % (Auto) 9.4 % 07/10/21 15:12 Eos % (Auto) 0.8 % 07/10/21 15:12 Baso % (Auto) 0.2 % 07/10/21 15:12 Neut # (Auto) 3.39 10^3/uL (1.8-7.7) 07/10/21 15:12 Lymph # (Auto) 1.3 10^3/uL (0.8-4.8) 07/10/21 15:12 [place] # (Auto) 0.5 10^3/uL (0.2-0.9) 07/10/21 15:12 Eos # (Auto) 0.0 10^3/uL (0.0-0.8) 07/10/21 15:12 Baso # (Auto) 0.0 10^3/uL (0.0-0.1) 07/10/21 15:12 Nucleated RBC % (auto) 0 % 07/10/21 15:12 Nucleated RBCs # 0.0 /100WBC 07/10/21 15:12 D-Dimer 0.37 ug/mIFEU (0-0.59) 07/10/21 15:12 Sodium 137 mmol/L (136-145) 07/10/21 15:12 Potassium 3.5 mmol/L (3.5-5.1) 07/10/21 15:12 Chloride 102 mmol/L (98-107) 07/10/21 15:12 Carbon Dioxide 25 mmol/L (22-29) 07/10/21 15:12 Anion Gap 13.5 (5-19) 07/10/21 15:12 BUN 6 mg/dL (6-20) 07/10/21 15:12 Creatinine 0.7 mg/dL (0.5-0.9) 07/10/21 15:12 GFR Calculation 96.4 mL/min (90-130) 07/10/21 15:12 Glucose 98 mg/dL (65-115) 07/10/21 15:12 Calculated Osmolality 282 mOsm/kg (285-295) L 07/10/21 15:12 Calcium 9.2 mg/dL (8.5-10.5) 07/10/21 15:12 Magnesium 1.7 mg/dL (1.7-2.3) 07/10/21 15:12 TSH 5.50 uIU/mL (0.27-4.20) H 07/10/21 15:12 Free T4 0.89 ng/dL (0.82-1.77) 07/10/21 15:12 HCG, Qual Negative (Negative) 07/10/21 15:12 Discharge Plan Discharge Patient Disposition: Home Clinical Impression: Palpitations Condition: Stable Prescriptions: New metoprolol tartrate 25 mg tablet 25 mg PO BID 10 Days Qty: 20 0RF No Action buspirone 5 mg tablet 5 mg PO BID PRN (Reason: Anxiety) 0RF tizanidine 4 mg tablet 4 mg PO BEDTIME PRN (Reason: Muscle Spasm) 0RF Ultram 50 mg Tablet 100 mg PO ONCE 0RF Tylenol Ex Str Rapid Release 500 mg Tablet 500 - 1,000 mg PO Q6H PRN (Reason: Pain) 0RF levothyroxine 50 mcg tablet 50 mcg PO QAM 0RF ibuprofen 200 mg Tablet 200 - 400 mg PO Q4H PRN (Reason: Pain) 0RF Discharge Orders: Discharge ED (Routine); Ordered 07/10/21 Ordered By: Marbella Mitchell Referrals: Nadya Gill, CREMATORY OPERATOR [Primary Care Provider] - Discharge Diet: Advance as tolerated Discharge Activity: Increase activity as tolerated Activity Restrictions/Additional Instructions: Our home health care case manager will have you follow-up with Dr. Vasquez for palpitations in the next few days. You would be expected to have a phone call with our home health care case manager who will put you on the schedule. You can expect a call from us in the next 2-3 days. If you don't hear from us, call us back in the emergency room at [phone]. Use your cardiac monitoring and follow-up with Dr. Vasquez. Please take your medicine as instructed. Come back to the emergency room you have any new or concerning complaints. Coding Level of Care Code ED Press Tender Incendiary Grenade for Farrah Fwcristian Exam Comprehensive
[2021-07-10 15:28] LABS: Basophils % 0.2 %; Eosinophils % 0.8 %; Hematocrit 42.1 % (37.0-47.0); Hemoglobin 14.8 g/dL (11.5-15.3); Lymphocytes # 1.3 10^3/uL (0.8-4.8); Lymphocytes % 24.2 %; Mean Corpuscular HGB Conc 35.2 g/dL (30.0-36.0); Mean Corpuscular Hemoglobin 31.2 pg (28.0-34.0); Mean Corpuscular Volume 88.6 fl (81-99); Monocytes # 0.5 10^3/uL (0.2-0.9); Monocytes % 9.4 %; Neutrophils # 3.39 10^3/uL (1.8-7.7); Nucleated Red Blood Cells % 0 %; Platelet Count 236 10^3/cmm (130-400); Red Blood Count 4.75 10^6/uL (4.1-5.3); White Blood Count 5.2 10^3/uL (4.0-10.0)
[2021-07-10] MEDS: metoprolol succinate ER (24 HR) 25 mg Tablet PO (15:28)
[2021-07-10 15:46] LABS: D Dimer 0.37 ug/mIFEU (0-0.59)
[2021-07-10 15:57] LABS: HCG, Serum Qual Negative (Negative)
[2021-07-10] MEDS: metoprolol tartrate 1 mg/1 mL SDV 5 mL 5 MG IVP (15:57)
[2021-07-10 15:59] LABS: Anion Gap 13.5 (5-19); Blood Urea Nitrogen 6 mg/dL (6-20); Calcium 9.2 mg/dL (8.5-10.5); Carbon Dioxide 25 mmol/L (22-29); Chloride 102 mmol/L (98-107); Free T4 Free Thyroxine 0.89 ng/dL (0.82-1.77); Glomerular Filtration Rate 96.4 mL/min (90-130); Glucose 98 mg/dL (65-115); Magnesium 1.7 mg/dL (1.7-2.3); Osmolality Calculated 282 mOsm/kg (285-295); Potassium 3.5 mmol/L (3.5-5.1); Sodium 137 mmol/L (136-145)
[2021-07-10] MEDS: metoprolol tartrate 50 mg Tablet PO (16:05)
[2021-07-10 16:42] VITALS: BP 115/74; PULSE 75; RESP 20; O2SAT 99
[2021-07-10 17:01] VITALS: BP 115/74; PULSE 75; RESP 20; TEMP 37.1; O2SAT 99
--- NOTE | 2021-07-13 11:00 | DCPLANNER ---
Addendum entered by Martha Gamez 08/05/21 15:37: Patient had a follow up appointment scheduled for 07.17.21 with [facility] - patient did attend appointment Patient had a follow up appointment scheduled for 07.14.21 for a 21 day event monitor - patient did attend appointment. Addendum entered by Martha Gamez 07/14/21 06:59: Patient has a 21 day event monitor scheduled for Wednesday, July 14, 2021 at 2:30 at [facility], clinic will call patient with appointment information. Original Note: hydroelectric production manager had message to schedule a follow up appointment for patient with [facility]. Patient called case specialist asking about referral. hydroelectric production manager called [facility], spoke with Samantha Christopher, gave clinic patients information. A follow up appointment was scheduled for Saturday, July 17, 2021 at 10:[address] Cisneros. hydroelectric production manager called patient and gave patient the appointment information. hydroelectric production manager also had message to schedule an out patient 21 day event monitor. hydroelectric production manager faxed signed order to [facility], who will call patient with appointment information.
== END 2021-07-10 17:02 | disposition home or self-care (01) ==
PROVIDERS: Emergency Provider Emergency Medicine; PCP Nurse Practitioner Family
DX: R00.2 Palpitations (principal); Z86.19 Personal history of other infectious and parasitic diseases; F17.210 Nicotine dependence, cigarettes, uncomplicated
CPT/HCPCS: 80048; 83735; 84439; 84443; 84703; 85025; 85378; 93005; 96374; 99284; J3490

== ENCOUNTER → 2021-07-14 14:14 | Outpatient (BNVA) | payer MEDICAID, SELFPAY | PROVIDERS: PCP Nurse Practitioner Family; Visit Provider Internal Medicine Cardiovascular Disease | DX: R00.2 Palpitations (principal); R07.9 Chest pain, unspecified; I49.3 Ventricular premature depolarization | CPT/HCPCS: 93270 ==

== ENCOUNTER → 2021-07-17 10:42 | Outpatient (BNVA) | payer MEDICAID, SELFPAY | PROVIDERS: PCP Nurse Practitioner Family; Visit Provider Internal Medicine Cardiovascular Disease | DX: Z09 Encounter for follow-up examination after completed treatment for conditions other than malignant neoplasm (principal); R00.2 Palpitations; I49.3 Ventricular premature depolarization; F17.200 Nicotine dependence, unspecified, uncomplicated | CPT/HCPCS: 99212 ==

== ENCOUNTER → 2021-09-08 10:44 | Outpatient (BNVA) | payer MEDICAID, SELFPAY | PROVIDERS: PCP Nurse Practitioner Family; Visit Provider Internal Medicine Cardiovascular Disease | DX: I49.3 Ventricular premature depolarization (principal); O16.5 Unspecified maternal hypertension, complicating the puerperium; B19.20 Unspecified viral hepatitis C without hepatic coma; E03.9 Hypothyroidism, unspecified | CPT/HCPCS: 99213; 99214 ==